=== PATIENT | female | born 1965 | race Caucasian/White ===

== ENCOUNTER 2022-09-08 09:30 | Outpatient (CLI) | payer BC, SELFPAY | END 2022-09-08 09:31 | disposition home or self-care (01) | LOC: LONREF 09:30 | PROVIDERS: Visit Provider Internal Medicine Addiction Medicine | DX: F10.10 Alcohol abuse, uncomplicated (principal); F11.90 Opioid use, unspecified, uncomplicated | CPT/HCPCS: 80076 ==